=== PATIENT | male | born 1955 | race Caucasian/White ===

== ENCOUNTER 2024-03-07 11:59 | Emergency (ER) | payer MEDICARE, SELFPAY ==
[2024-03-07 12:08] VITALS: BP 115/79; PULSE 95; RESP 20; TEMP 36.7; O2SAT 96
--- NOTE | 2024-03-07 12:43 | ED.SKABFB ---
HPI - Skin/Abscess/Foreign Bdy General Chief complaint: Skin/Abscess/Foreign Body Stated complaint: Rash on face Time Seen by Provider: 03/07/24 12:30 Source: patient, RN notes reviewed and old records reviewed Mode of arrival: ambulatory Limitations: no limitations History of Present Illness HPI narrative: 69 year old male presents to [facility] care with red raised itchy rash to the cheeks of his face and to his right neck area for the past 2 days which he noticed is worse after golfing today. Patient does admit to pulling some weeds in his yard prior to appearance of rash. Patient denies any difficulty with his breathing or with swallowing. He reports that he has not applied any OTC medications to the rash. states is itcy. MD complaint: rash Onset (ago): day(s) (2) Location: face (cheeks and to right neck) Severity: mild Quality: pruritic Treatments prior to arrival: none Related Data Home Medications Medication Instructions Recorded Confirmed atorvastatin 10 mg tablet mg 03/07/24 losartan 100 mg tablet mg 03/07/24 Allergies Allergy/AdvReac Type Severity Reaction Status Date / Time No Known Allergies Allergy Verified 03/07/24 12:21 Review of Systems Review of Systems: CONSTITUTIONAL: Denies fever, chills, or sweats. CARDIOVASCULAR: Denies chest pain, palpitations, or edema. RESPIRATORY: Denies cough or dyspnea. SKIN: Reports rash to cheeks on face and on right neck MUSCULOSKELETAL: Denies joint pain or myalgia. NEUROLOGIC: Denies headache, numbness, or weakness. All systems reviewed & are unremarkable except as noted in HPI and below PMFSH Past Medical History Medical History (Updated 03/09/24 @ 09:05 by Jody Hylton NP) Hyperlipidemia Hypertension Surgical History Surgical History (Updated 03/09/24 @ 09:02 by Jody Hylton NP) H/O hernia repair S/P medial meniscal repair Social History Social History (Updated 03/09/24 @ 09:00 by Jody Hylton NP) Smoking status: Never smoker Alcohol intake: current Alcohol use details: social Substance use type: does not use Living arrangements: with family Gender identity (if verbalized by the patient): Male Comments At time of signature, agree with nursing past medical, surgical, social and family history. There is no relevant family history pertinent to the presenting complaint Exam Narrative: GENERAL: Well-appearing, well-nourished, and in no acute distress. HEAD: Normocephalic, atraumatic. EYES: PERRLA, conjunctivae clear, and EOMI. ENT: Mucous membranes moist. Oropharynx without edema, erythema or lesions. NECK: Supple. No lymphadenopathy CHEST: Clear to auscultation. No respiratory distress.SAO2 96% on room air HEART: Regular rate and rhythm. SKIN: Warm, dry.? Patches of red raised itchy rash to the cheeks bilaterally on face and to right neck, none around eyes NEURO:? Alert and oriented x3. PSYCH: Normal mood and affect Course Course Emergency Course: Patient is aware of diagnosis, understands and agrees to treatment plan.? Anticipatory guidance given.? Patient agrees to follow-up as directed and is aware of reasons to seek care at the emergency department. Portions of this record may have been created with voice recognition software Level of Care: Express Care Visit Vital Signs Vital signs: Vital Signs Temperature 36.7 C 03/07/24 12:08 Pulse Rate 95 03/07/24 12:08 Respiratory Rate 20 03/07/24 12:08 Blood Pressure 115/79 03/07/24 12:08 Pulse Oximetry 96 03/07/24 12:08 Oxygen Delivery Room Air 03/07/24 12:08 Temperature 36.7 C 03/07/24 12:08 Pulse Rate 95 03/07/24 12:08 Respiratory Rate 20 03/07/24 12:08 Blood Pressure 115/79 03/07/24 12:08 Pulse Oximetry 96 03/07/24 12:08 Oxygen Delivery Room Air 03/07/24 12:08 Reviewed MDM - Skin/Abscess/Foreign Bdy MDM Narrative Medical decision making narrative: Does not appear at this ti
== END 2024-03-07 13:00 | disposition home or self-care (01) ==
PROVIDERS: Emergency Provider Registered Nurse
DX: L25.9 Unspecified contact dermatitis, unspecified cause (principal); E78.5 Hyperlipidemia, unspecified; I10 Essential (primary) hypertension
CPT/HCPCS: 99203; G0463